=== PATIENT | male | born 1960 | race Caucasian/White ===

== ENCOUNTER → 2022-03-13 | Outpatient (CLI) | payer OTHER ==
[2022-03-13 11:16] LABS: ALT 69 U/L (10-49); AST 50 U/L (14-35); African American GFR (CKD) 112.5 (60.0-200.0); Albumin 4.5 g/dL (3.8-4.9); Alkaline Phosphatase 78 U/L (41-126); BUN/Creat Ratio 17.38 Ratio (12.00-20.00); Blood Urea Nitrogen 13.9 mg/dL (9.0-27.0); Carbon Dioxide 24.1 mmol/L (20.0-27.5); Chloride 107 mmol/L (96-109); Globulin 2.5 g/dL (1.6-3.3); Glucose 98 mg/dL (70-110); Magnesium 2.3 mg/dL (1.5-2.4); Non-African American GFR(CKD) 97.1 (60.0-200.0); Potassium 4.7 mmol/L (3.5-5.5); Sodium 140 mmol/L (135-145)
[2022-03-13 12:36] LABS: Basophils # (A) 0.07 X 10*3/uL (0.00-0.10); Basophils % (A) 1.3 %; Eosinophils # (A) 0.08 X 10*3/uL (0.04-0.35); Eosinophils % (A) 1.4 %; HCT 43.9 % (39.6-50.0); HGB 15.5 g/dL (13.0-17.0); Immature Grans, Automated 0.7 %; Lymphocytes # (A) 1.79 X 10*3/uL (0.90-5.00); Lymphocytes % (A) 32.3 %; MCH 31.7 pg (27.0-32.0); MCHC 35.3 g/dL (32.0-37.0); MCV 89.8 fL (80.0-97.0); Mean Platelet Volume 11.3 fL (9.5-12.2); Monocytes # (A) 0.56 X 10*3/uL (0.20-1.00); Monocytes % (A) 10.1 %; NRBC Per 100 WBC 0 /100 WBCS (0.0-0.0); Neutrophils # (A) 3.01 X 10*3/uL (1.80-7.70); Neutrophils % (A) 54.2 %; Platelet Count 130 X 10*3/uL (140-440); RBC 4.89 X 10*6/uL (4.40-5.60); RDW 13.5 % (11.5-14.5); WBC 5.55 X 10*3/uL (4.50-10.00)
== END | disposition home or self-care (01) ==
LOC: LABWHC1 07:34
PROVIDERS: ATTEND Physician Assistant
DX: E55.9 Vitamin D deficiency, unspecified (principal); R60.9 Edema, unspecified; G62.9 Polyneuropathy, unspecified
CPT/HCPCS: 36415; 80053; 82306; 83735; 84443; 85025

== ENCOUNTER → 2022-06-15 | Outpatient (CLI) | payer OTHER ==
--- NOTE | 2022-06-15 11:10 | XR ---
EXAMINATION TYPE: XR chest 2V DATE OF EXAM: 06/15/2022 COMPARISON: NONE TECHNIQUE: PA and lateral views submitted. HISTORY: SOB since covid FINDINGS: The lungs are clear and there is no pneumothorax, pleural effusion, or focal pneumonia. Heart size normal and no overt failure. Osseous structures demonstrate hypertrophic and degenerative changes of the spine. IMPRESSION: 1. No acute process.
[2022-06-15 18:01] LABS: Basophils # (A) 0.09 X 10*3/uL (0.00-0.10); Basophils % (A) 1.4 %; Eosinophils # (A) 0.09 X 10*3/uL (0.04-0.35); Eosinophils % (A) 1.4 %; HCT 47.1 % (39.6-50.0); HGB 15.7 g/dL (13.0-17.0); Immature Grans, Automated 0.5 %; Lymphocytes # (A) 2.56 X 10*3/uL (0.90-5.00); Lymphocytes % (A) 39.4 %; MCH 30.7 pg (27.0-32.0); MCHC 33.3 g/dL (32.0-37.0); MCV 92.2 fL (80.0-97.0); Mean Platelet Volume 11.6 fL (9.5-12.2); Monocytes # (A) 0.61 X 10*3/uL (0.20-1.00); Monocytes % (A) 9.4 %; NRBC Per 100 WBC 0 /100 WBCS (0.0-0.0); Neutrophils # (A) 3.12 X 10*3/uL (1.80-7.70); Neutrophils % (A) 47.9 %; Platelet Count 156 X 10*3/uL (140-440); RBC 5.11 X 10*6/uL (4.40-5.60); RDW 13.3 % (11.5-14.5)
[2022-06-15 19:28] LABS: ALT 88 U/L (10-49); AST 60 U/L (14-35); African American GFR (CKD) 107.2 (60.0-200.0); Albumin 4.8 g/dL (3.8-4.9); Albumin/Globulin Ratio 1.92 (1.60-3.17); Alkaline Phosphatase 78 U/L (41-126); BUN/Creat Ratio 20.56 Ratio (12.00-20.00); Blood Urea Nitrogen 18.5 mg/dL (9.0-27.0); Calcium 9.3 mg/dL (8.7-10.3); Carbon Dioxide 18.6 mmol/L (20.0-27.5); Chloride 104 mmol/L (96-109); Globulin 2.5 g/dL (1.6-3.3); Glucose 92 mg/dL (70-110); Magnesium 2.2 mg/dL (1.5-2.4); Non-African American GFR(CKD) 92.5 (60.0-200.0); Potassium 4.6 mmol/L (3.5-5.5); Sodium 138 mmol/L (135-145); Total Protein 7.3 g/dL (6.2-8.2)
[2022-06-15 19:29] LABS: Chol/HDL Ratio 4.02 Ratio; LDL Cholesterol,Calculated 100.7 mg/dL (0.0-131.0); VLDL Calculation 16.48 mg/dL (5.00-40.00)
== END | disposition home or self-care (01) ==
LOC: LABWHC1 10:42
PROVIDERS: ATTEND Physician Assistant
DX: Z00.00 Encounter for general adult medical examination without abnormal findings (principal); Z13.220 Encounter for screening for lipoid disorders; Z12.5 Encounter for screening for malignant neoplasm of prostate; R06.02 Shortness of breath; R60.9 Edema, unspecified
CPT/HCPCS: 36415; 71046; 80053; 80061; 83735; 84153; 85025

== ENCOUNTER 2023-01-11 13:11 | Emergency (ER) | payer OTHER ==
--- NOTE | 2023-01-11 13:31 | ED ---
General Adult HPI - General Chief complaint: Extremity Injury, Lower Stated complaint: poss DVT rt leg Time Seen by Provider: 01/11/23 13:15 Source: patient, RN notes reviewed, old records reviewed Mode of arrival: ambulatory Limitations: no limitations - History of Present Illness Initial comments: This is a 62-year-old male presents emergency Department with a past medical history significant for DVTs. Patient also states she's had peripheral vascular disease. Patient states she continues to smoke. Patient states he has pain from the knee down on the right side. 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 Patient's denying any increased swelling or redness. Patient denies any injury to the leg or knee. Patient states he does have chronic back pain. Patient denies any problems breathing or chest pain. - Related Data Previous Rx's Medication Instructions Recorded Apixaban [Eliquis Starter Pack 5 - 10 mg PO DIRECTED 30 Days 01/11/23 (for VTE)] #1 each Allergies Allergy/AdvReac Type Severity Reaction Status Date / Time No Known Allergies Allergy Verified 01/11/23 13:16 Review of Systems ROS Statement: Those systems with pertinent positive or pertinent negative responses have been documented in the HPI. ROS Other: All systems not noted in ROS Statement are negative. Past Medical History Additional Past Medical History / Comment(s): neuropathy History of Any Multi-Drug Resistant Organisms: None Reported Past Surgical History: Unable to Obtain Past Psychological History: No Psychological Hx Reported Smoking Status: Current every day smoker Past Alcohol Use History: None Reported Past Drug Use History: None Reported General Exam - General Exam Comments Initial Comments: GENERAL: Patient is well-developed and well-nourished. Patient is nontoxic and well- hydrated and is in mild distress. ENT: Neck is soft and supple. No significant lymphadenopathy is noted. Oropharynx is clear. Moist mucous membranes. Neck has full range of motion without eliciting any pain. EYES: The sclera were anicteric and conjunctiva were pink and moist. Extraocular movements were intact and pupils were equal round and reactive to light. Eyelids were unremarkable. PULMONARY: Unlabored respirations. Good breath sounds bilaterally. No audible rales rhonchi or wheezing was noted. CARDIOVASCULAR: There is a regular rate and rhythm without any murmurs gallops or rubs. ABDOMEN: Soft and nontender with normal bowel sounds. SKIN: Skin is clear with no lesions or rashes and otherwise unremarkable. NEUROLOGIC: Patient is alert and oriented x3. Cranial nerves II through XII are grossly intact. Motor and sensory are also intact. Normal speech, volume and content. Symmetrical smile. MUSCULOSKELETAL: Normal extremities with adequate strength and full range of motion. No lower extremity swelling or edema. No calf tenderness. Patient has no tenderness to palpation and there were LYMPHATICS: No significant lymphadenopathy is noted PSYCHIATRIC: Normal psychiatric evaluation. Limitations: no limitations Course Vital Signs 01/11/23 01/11/23 13:11 15:03 Temperature 98.3 F 98.4 F Pulse Rate 66 56 L Respiratory 18 17 Rate Blood Pressure 131/86 135/89 O2 Sat by Pulse 99 98 Oximetry Medical Decision Making - Medical Decision Making Was pt. sent in by a medical professional or institution (, PA, [employer] SOLUTIONS ARCHITECT, urgent care, hospital, or care home...) When possible be specific @ -No Did you speak to anyone other than the patient for history (EMS, parent, family, police, friend...)? What history was obtained from this source @ -No Did you review nursing and triage notes (agree or disagree)? Why? @ -I reviewed and agree with nursing and triage notes Were old charts reviewed (outside hosp., previous admission, EMS record, old EKG, old radiological studies, urgent care reports/EKG's, care home records)? Report findings @ -No old charts were reviewed Differential Diagnosis (chest pain, altered mental status, abdominal pain women, abdominal pain men, vaginal bleeding, weakness, fever, dyspnea, syncope, headache, dizziness, GI bleed, back pain, seizure, CVA, palpatations, mental health, musculoskeletal)? @ -DVT, sciatica, edema, knee injury EKG interpreted by me (3pts min.). @ -As above X-rays interpreted by me (1pt min.). @ -None done CT interpreted by me (1pt min.). @ -None done U/S interpreted by me (1pt. min.). @ -Ultrasound showed DVT in the right femoral vein What testing was considered but not performed or refused? (CT, X-rays, U/S, labs)? Why? @ -None What meds were considered but not given or refused? Why? @ -None Did you discuss the management of the patient with other professionals (professionals i.e. , PA, [employer] ARCHITECT, lab, RT, psych nurse, certified social workers in health care, artificial breeding technician, teacher, risk control officer, returned case inspector)? Give summary @ -No Was smoking cessation discussed for >3mins.? @ -No Was critical care preformed (if so, how long)? @ -No Were there social determinants of health that impacted care today? How? (Homelessness, low income, unemployed, alcoholism, drug addiction, transportation, low edu. Level, literacy, decrease access to med. care, halfway, rehab)? @ -No Was there de-escalation of care discussed even if they declined (Discuss DNR or withdrawal of care, Hospice)? DNR status @ -No What co-morbidities impacted this encounter? (DM, HTN, Smoking, COPD, CAD, Cancer, CVA, ARF, Chemo, Hep., AIDS, mental health diagnosis, sleep apnea, morbid obesity)? @ -None Was patient admitted / discharged? Hospital course, mention meds given and route, prescriptions, significant lab abnormalities, going to OR and other pertinent info. @ -Received eliquis in the emergency department and will be sent home on eliquis Undiagnosed new problem with uncertain prognosis? @ -No Drug Therapy requiring intensive monitoring for toxicity (Heparin, Nitro, Insulin, Cardizem)? @ -No Were any procedures done? @ -No Diagnosis/symptom? @ -DVT Acute, or Chronic, or Acute on Chronic? @ -Acute Uncomplicated (without systemic symptoms) or Complicated (systemic symptoms)? @ -Complicated Side effects of treatment? @ -No Exacerbation, Progression, or Severe Exacerbation? @ -No Poses a threat to life or bodily function? How? (Chest pain, [place], [place], pneumonia, PE, COPD, DKA, ARF, appy, cholecystitis, CVA, Diverticulitis, Homicidal, Suicidal, threat to staff... and all critical care pts) @ -Yes this could lead to a pulmonary embolism and cause Disposition Clinical Impression: Deep venous thrombosis Disposition: HOME SELF-CARE Condition: Good Instructions (If sedation given, give patient instructions): Deep Vein Thrombosis (ED) Prescriptions: Apixaban [Eliquis Starter Pack (for VTE)] 5 - 10 mg PO DIRECTED 30 Days #1 each Is patient prescribed a controlled substance at d/c from ED?: No Referrals: Reji Moore MD [Primary Care Provider] - 1-2 days Time of Disposition: 15:40
[2023-01-11 15:03] VITALS: BP 135/89; PULSE 56; RESP 17; TEMP 98.4
--- NOTE | 2023-01-11 15:18 | US ---
EXAMINATION TYPE: US venous doppler duplex LE RT DATE OF EXAM: 01/11/2023 2:59 PM COMPARISON: NONE CLINICAL INDICATION: Male, 62 years old with history of Leg pain history of DVT; Right leg pain, hist ory of DVT SIDE PERFORMED: Right TECHNIQUE: The lower extremity deep venous system is examined utilizing real time linear array sonog santi with graded compression, doppler sonography and color-flow sonography. VESSELS IMAGED: Common Femoral Vein Deep Femoral Vein Greater Saphenous Vein * Femoral Vein Popliteal Vein Small Saphenous Vein * Proximal Calf Veins (* superficial vessels) Right Leg: Positive for DVT - CFV - partial compression and flow seen at this level IMPRESSION: 1. Findings are positive for acute DVT right common femoral vein
[2023-01-11] MEDS ORDERED: APIXABAN 5 MG TAB PO STA (15:37)
[2023-01-11] MEDS ORDERED: Apixaban Initiation Dose--VTE 5 MG TAB PO SCH (21:00)
[2023-01-11] MEDS ORDERED: APIXABAN 5 MG TAB PO SCH (21:00)
== END 2023-01-11 15:45 | disposition home or self-care (01) ==
LOC: EC 13:11
DX: I82.411 Acute embolism and thrombosis of right femoral vein (principal); F17.200 Nicotine dependence, unspecified, uncomplicated
CPT/HCPCS: 99283

== ENCOUNTER → 2023-01-27 | Outpatient (CLI) | payer OTHER ==
--- NOTE | 2023-01-27 09:02 | XR ---
EXAMINATION TYPE: XR knee 4V RT DATE OF EXAM: 01/27/2023 COMPARISON: NONE HISTORY: Pain TECHNIQUE: Three views are submitted. FINDINGS: There is narrowing of the medial compartment joint space with marginal spurring. Mild patellofemoral joint narrowing with marginal spurring. There is a small amount of fluid in the suprapatellar bursa. Mild sedation.. Osseous structures are intact. No acute fracture seen. IMPRESSION: 1. Mild osteoarthritis. There is a small amount of fluid in the supra patellar bursa. This can be ass ociated with internal derangement of the knee.
== END | disposition home or self-care (01) ==
LOC: RADXRMAIN 08:29
PROVIDERS: ATTEND Pediatrics
DX: M17.11 Unilateral primary osteoarthritis, right knee (principal)

== ENCOUNTER → 2023-01-27 | Outpatient (CLI) | payer OTHER ==
[2023-01-27 18:02] LABS: Amylase 45 U/L (23-121); Lipase 19 U/L (14-60)
[2023-01-27 21:09] LABS: Gliadin AB IgA, Deaminated Negative (Negative); Gliadin AB IgA, Unit <0.5 U/mL; Gliadin AB IgG, Deaminated Negative (Negative); Gliadin AB IgG, Unit <0.4 U/mL
[2023-01-27 22:25] LABS: Hepatitis C IgG Antibody Reactive (Non-Reactive)
[2023-01-27 22:26] LABS: Hepatitis A Antibody IgM Nonreactive; Hepatitis B Core IgM Nonreactive; Hepatitis B Surface Antigen Nonreactive
== END | disposition home or self-care (01) ==
LOC: LABWHC1 09:07
PROVIDERS: ATTEND Pediatrics
DX: R74.8 Abnormal levels of other serum enzymes (principal)
CPT/HCPCS: 36415; 80074; 82150; 83516; 83690

== ENCOUNTER → 2023-01-29 | Outpatient (CLI) | payer OTHER ==
--- NOTE | 2023-01-29 08:36 | US ---
EXAMINATION TYPE: US abdomen limited DATE OF EXAM: 01/29/2023 COMPARISON: NONE CLINICAL INDICATION: Male, 62 years old with history of R74.8 elevated liver enzymes; Recent bloodwor k showed elevated LFT's TECHNIQUE: Multiple sonographic images of the right upper quadrant are obtained. FINDINGS: EXAM MEASUREMENTS: Liver Length: 18.9 cm Gallbladder Wall: 0.25 cm CBD: 0.26 cm Right Kidney: 12.3x5.4x5.5 cm HEALTH POLICY ANALYST NOTES: Pancreas: wnl Liver: echogenic and enlarged Gallbladder: wnl Evidence for sonographic Tejeda's sign: No CBD: wnl Right Kidney: wnl exam slightly limited by bowel and body habitus Pancreas is within normal limits. Liver is enlarged with diffusely increased echotexture. This limits evaluation for detection of intrahepatic masses. No gross evidence of focal lesion. Gallbladder is u nremarkable without evidence of wall thickening, pericholecystic fluid, or cholelithiasis. Per sonogr apher, negative sonographic Tejeda sign. Common bile duct is within normal limits. Right kidney is un remarkable without evidence of hydronephrosis, nephrolithiasis, or solid mass. IMPRESSION: Hepatomegaly with fatty infiltration.
== END | disposition home or self-care (01) ==
LOC: RADUSWWP 06:45
PROVIDERS: ATTEND Pediatrics
DX: K76.0 Fatty (change of) liver, not elsewhere classified (principal); R74.8 Abnormal levels of other serum enzymes
CPT/HCPCS: 76705

== ENCOUNTER 2023-02-11 10:23 | Emergency (ER) | payer OTHER ==
--- NOTE | 2023-02-11 10:42 | ED ---
General Adult HPI - General Source: patient, RN notes reviewed Mode of arrival: ambulatory Limitations: no limitations <Clyde Pope - Last Filed: 02/11/23 10:39> <Michaela Meadows - Last Filed: 02/11/23 18:14> - General Stated complaint: Abd pain Time Seen by Provider: 02/11/23 10:39 - History of Present Illness Initial comments: 62-year-old male presents emergency Department with chief complaint of abdominal pain. Patient states his started on Eliquis 2 weeks ago for a blood clot. Patient states he has epigastric pain, states is very severe doubled him over yesterday. No chest pain or shortness of breath. (Clyde Pope) Patient is a 62-year-old gentleman who has a history of DVTs that he started Eliquis on for 2 weeks ago, who presents to the emergency room with complaints of epigastric pain and right upper quadrant pain that started yesterday morning while driving. The patient states that the pain has been constant over the last 2 days. It has not fluctuated in intensity and it is not worse with eating or drinking certain foods, positional changes or breathing. Denies any cough, shortness breath, chest pain or hemoptysis. The patient denies any fevers. He denies any dark or tarry stool but admits that he has not had a bowel movement over the last several days. The patient has had a decreased appetite because of the pain. He denies any alcohol or drug use. Denies the history of pancreatitis. The patient denies any history of gallstones or gallbladder issues. (Michaela Meadows) - Related Data Previous Rx's Medication Instructions Recorded Apixaban [Eliquis Starter Pack 5 - 10 mg PO DIRECTED 30 Days 01/11/23 (for VTE)] #1 each Omeprazole [PriLOSEC] 40 mg PO DAILY #30 cap 02/11/23 Sucralfate [Carafate] 1 gm PO BID #24 tab 02/11/23 Allergies Allergy/AdvReac Type Severity Reaction Status Date / Time No Known Allergies Allergy Verified 02/11/23 10:44 Review of Systems ROS Other: All systems not noted in ROS Statement are negative. <Clyde Pope - Last Filed: 02/11/23 10:39> ROS Other: All systems not noted in ROS Statement are negative. <Michaela Meadows - Last Filed: 02/11/23 18:14> ROS Statement: Those systems with pertinent positive or pertinent negative responses have been documented in the HPI. Past Medical History Additional Past Medical History / Comment(s): neuropathy History of Any Multi-Drug Resistant Organisms: None Reported Past Surgical History: Unable to Obtain Past Psychological History: No Psychological Hx Reported Smoking Status: Current every day smoker Past Alcohol Use History: None Reported Past Drug Use History: None Reported <Clyde Pope - Last Filed: 02/11/23 10:39> General Exam <Clyde Pope - Last Filed: 02/11/23 10:39> Limitations: no limitations General appearance: alert, in no apparent distress Head exam: Present: atraumatic Neck exam: Present: normal inspection Respiratory exam: Present: normal lung sounds bilaterally Cardiovascular Exam: Present: regular rate, normal rhythm GI/Abdominal exam: Present: soft, other (Epigastric pain and right upper quadrant pain on palpation. Positive Tejeda's sign. No peritoneal signs or rebound tenderness. No abdominal distention.) Extremities exam: Present: full ROM Back exam: Present: full ROM Neurological exam: Present: alert, oriented X3 Psychiatric exam: Present: normal affect, normal mood Skin exam: Present: warm <VeeMichaela blank - Last Filed: 02/11/23 18:14> - General Exam Comments Initial Comments: Visual Physical Exam Vital signs reviewed General: Well-appearing, nontoxic, no acute distress. Head: Normocephalic, atraumatic Eyes: PERRLA, EOMI ENT: Airway patent Chest: Nonlabored breathing Skin: No visual rash, normal skin tone Neuro: Alert and oriented 3 Musculoskeletal: No gross abnormalities (Clyde Pope) Course <Michaela Meadows - Last Filed: 02/11/23 18:14> Vital Signs 02/11/23 02/11/23 02/11/23 10:44 16:42 17:52 Temperature 98.1 F 98 F Pulse Rate 74 68 74 Respiratory 16 18 16 Rate Blood Pressure 146/92 147/89 139/81 O2 Sat by Pulse 100 100 100 Oximetry - Reevaluation(s) Reevaluation #1: 02/11/23 3552 Patient had no significant improvement with GI cocktail. Was given Carafate. On reevaluation patient is eager to leave the emergency room. Discussed labs, EKG results and imaging results with patient. Patient has bilateral liver which I discussed with him. He has a slightly elevated liver enzymes. Per discussion with attending physician Dr. Weems, a hepatitis panel was added and will be followed as an outpatient. I discussed going up a GI specialist for possible outpatient upper endoscopy and HIDA scan. Discussed management of the epigastric pain possible gallbladder problems with the patient. Patient will be given Carafate as being for pain as well as omeprazole. Discussed diet with the patient. I incised return to the emergency room. He understands and agrees to treatment and discharge plan. (Michaela Meadows) EKG Findings - EKG Comments: EKG Findings:: EKG shows sinus rhythm at a rate of 75 bpm with an incomplete right bundle-branch block, nonspecific anteriorly changes, no acute ST segment elevation <Michaela Meadows - Last Filed: 02/11/23 18:14> Medical Decision Making <Clyde Pope - Last Filed: 02/11/23 10:39> - Lab Data Result diagrams: 02/11/23 11:50 02/11/23 11:50 - EKG Data -: EKG Interpreted by Me - Radiology Data Radiology results: report reviewed, image reviewed <Michaela Meadows - Last Filed: 02/11/23 18:14> - Medical Decision Making I performed a quick note portion of this chart signed Clyde Pope PA-C (Clyde Pope) Was pt. sent in by a medical professional or institution (, BRIAN, TRAFFIC SIGNAL REPAIRER, urgent care, hospital, or halfway...) When possible be specific @ -[No] Did you speak to anyone other than the patient for history (EMS, parent, family, police, friend...)? What history was obtained from this source @ -[No] Did you review nursing and triage notes (agree or disagree)? Why? @ -[I reviewed and agree with nursing and triage notes] Were old charts reviewed (outside hosp., previous admission, EMS record, old EKG, old radiological studies, urgent care reports/EKG's, halfway records)? Report findings @ -[No old charts were reviewed] Differential Diagnosis (chest pain, altered mental status, abdominal pain women, abdominal pain men, vaginal bleeding, weakness, fever, dyspnea, syncope, headache, dizziness, GI bleed, back pain, seizure, CVA, palpatations, mental health, musculoskeletal)? @ -Gallstones, cholecystitis, GERD, duodenal or gastric ulcer, pancreatitis, angina, [place] EKG interpreted by me (3pts min.). @ -EKG shows sinus rhythm at a rate of 75 beats per minute with incomplete right bundle-branch block, nonspecific anteriorly changes, no acute ST segment elevation X-rays interpreted by me (1pt min.). @ -[None done] CT interpreted by me (1pt min.). @ -[None done] U/S interpreted by me (1pt. min.). @ -The ultrasound is negative for any obvious mass or extraction. Possible viral liver noted, radiology report pending for confirmation of acute changes. What testing was considered but not performed or refused? (CT, X-rays, U/S, labs)? Why? @ -[None] What meds were considered but not given or refused? Why? @ -[None] Did you discuss the management of the patient with other professionals (professionals i.e. , PA, TRAFFIC SIGNAL REPAIRER, lab, RT, psych nurse, social media marketing analyst, atomic spectroscopist, teacher, information assurance officer, lead case manager)? Give summary @ -I discussed patient's symptoms are And management with attending ED physician Dr. Weems today. Was smoking cessation discussed for >3mins.? @ -[No] Was critical care preformed (if so, how long)? @ -[No] Were there social determinants of health that impacted care today? How? (Homelessness, low income, unemployed, alcoholism, drug addiction, transportation, low edu. Level, literacy, decrease access to med. care, care home, rehab)? @ -[No] Was there de-escalation of care discussed even if they declined (Discuss DNR or withdrawal of care, Hospice)? DNR status @ -[No] What co-morbidities impacted this encounter? (DM, HTN, Smoking, COPD, CAD, Cancer, CVA, ARF, Chemo, Hep., AIDS, mental health diagnosis, sleep apnea, morbid obesity)? @ -[None] Was patient admitted / discharged? Hospital course, mention meds given and route, prescriptions, significant lab abnormalities, going to OR and other pertinent info. @ -The patient is well-appearing emergency room. Vital signs are stable. Patient's troponin and EKG are within normal limits. He was feeling better after the Carafate and is eager to leave. His labs with the exception of mild elevated LFTs were within normal limits. Patient has no obvious cholecystitis or other surgical complication seen on the ultrasound of the gallbladder. I discussed following up as an outpatient with GI specialist for further evaluation and management of the epigastric pain. Discussed signs return to the emergency room which the patient understands and agrees upon. He is stable to be discharged at this time. There is no indication that hospitalization is required. Undiagnosed new problem with uncertain prognosis? @ -No Drug Therapy requiring intensive monitoring for toxicity (Heparin, Nitro, Insulin, Cardizem)? @ -[No] Were any procedures done? @ -[No] Diagnosis/symptom? @ -Epigastric pain, mild elevated liver enzymes, hepatic Steatosis Acute, or Chronic, or Acute on Chronic? @ -Acute Uncomplicated (without systemic symptoms) or Complicated (systemic symptoms)? @ -[default] Side effects of treatment? @ -[No] Exacerbation, Progression, or Severe Exacerbation? @ -[No] Poses a threat to life or bodily function? How? (Chest pain, [place], [place], pneumonia, PE, COPD, DKA, ARF, appy, cholecystitis, CVA, Diverticulitis, Homicidal, Suicidal, threat to staff... and all critical care pts) @ -[No] (Michaela Meadows) - Lab Data Lab Results 02/11/23 02/11/23 02/11/23 Range/Units 11:50 11:50 11:50 WBC 11.8 H (3.8-10.6) k/uL RBC 5.66 (4.30-5.90) m/uL Hgb 18.3 H (13.0-17.5) gm/dL Hct 52.7 (39.0-53.0) % MCV 93.0 (80.0-100.0) fL MCH 32.4 (25.0-35.0) pg MCHC 34.8 (31.0-37.0) g/dL RDW 13.1 (11.5-15.5) % Plt Count 153 (150-450) k/uL MPV 8.4 Neutrophils % 71 % Lymphocytes % 19 % Monocytes % 7 % Eosinophils % 1 % Basophils % 0 % Neutrophils # 8.3 H (1.3-7.7) k/uL Lymphocytes # 2.2 (1.0-4.8) k/uL Monocytes # 0.9 (0-1.0) k/uL Eosinophils # 0.2 (0-0.7) k/uL Basophils # 0.1 (0-0.2) k/uL Sodium 136 L (137-145) mmol/L Potassium 4.8 (3.5-5.1) mmol/L Chloride 102 (98-107) mmol/L Carbon Dioxide 24 (22-30) mmol/L Anion Gap 10 mmol/L BUN 19 (9-20) mg/dL Creatinine 0.81 (0.66-1.25) mg/dL Est GFR (CKD-EPI)AfAm >90 (>60 ml/min/1.73 sqM) Est GFR (CKD-EPI)NonAf >90 (>60 ml/min/1.73 sqM) Glucose 94 (74-99) mg/dL Plasma Lactic Acid Lenin 1.0 (0.7-2.0) mmol/L Calcium 9.7 (8.4-10.2) mg/dL Total Bilirubin 3.9 H (0.2-1.3) mg/dL AST 86 H (17-59) U/L ALT 139 H (4-49) U/L Alkaline Phosphatase 73 (38-126) U/L Troponin I (0.000-0.034) ng/mL Total Protein 8.5 H (6.3-8.2) g/dL Albumin 4.9 (3.5-5.0) g/dL Lipase 77 (23-300) U/L 02/11/23 Range/Units 15:53 WBC (3.8-10.6) k/uL RBC (4.30-5.90) m/uL Hgb (13.0-17.5) gm/dL Hct (39.0-53.0) % MCV (80.0-100.0) fL MCH (25.0-35.0) pg MCHC (31.0-37.0) g/dL RDW (11.5-15.5) % Plt Count (150-450) k/uL MPV Neutrophils % % Lymphocytes % % Monocytes % % Eosinophils % % Basophils % % Neutrophils # (1.3-7.7) k/uL Lymphocytes # (1.0-4.8) k/uL Monocytes # (0-1.0) k/uL Eosinophils # (0-0.7) k/uL Basophils # (0-0.2) k/uL Sodium (137-145) mmol/L Potassium (3.5-5.1) mmol/L Chloride (98-107) mmol/L Carbon Dioxide (22-30) mmol/L Anion Gap mmol/L BUN (9-20) mg/dL Creatinine (0.66-1.25) mg/dL Est GFR (CKD-EPI)AfAm (>60 ml/min/1.73 sqM) Est GFR (CKD-EPI)NonAf (>60 ml/min/1.73 sqM) Glucose (74-99) mg/dL Plasma Lactic Acid Lenin (0.7-2.0) mmol/L Calcium (8.4-10.2) mg/dL Total Bilirubin (0.2-1.3) mg/dL AST (17-59) U/L ALT (4-49) U/L Alkaline Phosphatase (38-126) U/L Troponin I <0.012 (0.000-0.034) ng/mL Total Protein (6.3-8.2) g/dL Albumin (3.5-5.0) g/dL Lipase (23-300) U/L Disposition <Clyde Pope - Last Filed: 02/11/23 10:39> Is patient prescribed a controlled substance at d/c from ED?: No Time of Disposition: 17:47 <Michaela Meadows - Last Filed: 02/11/23 18:14> Clinical Impression: Acute abdomen, Epigastric pain, Hepatic steatosis, Elevated liver enzymes Disposition: HOME SELF-CARE Condition: Good Instructions (If sedation given, give patient instructions): Sucralfate (By mouth), Low Fat Diet (ED), Non-Alcoholic Fatty Liver Disease (ED), Abdominal Pain (ED), Epigastric Pain (ED) Additional Instructions: follow up with GI specialist for outpatient endoscopy and possible HIDA scan. Prescriptions: Sucralfate [Carafate] 1 gm PO BID #24 tab Omeprazole [PriLOSEC] 40 mg PO DAILY #30 cap Referrals: Reji Moore MD [Primary Care Provider] - 1-2 days Ivania Alfaro MD [STAFF PHYSICIAN] - 1-2 days
[2023-02-11 11:56] LABS: Basophils # (A) 0.1 k/uL (0-0.2); Basophils % (A) 0 %; Eosinophils # (A) 0.2 k/uL (0-0.7); Eosinophils % (A) 1 %; HCT 52.7 % (39.0-53.0); HGB 18.3 gm/dL (13.0-17.5); Lymphocytes # (A) 2.2 k/uL (1.0-4.8); Lymphocytes % (A) 19 %; MCH 32.4 pg (25.0-35.0); MCHC 34.8 g/dL (31.0-37.0); Mean Platelet Volume 8.4; Monocytes # (A) 0.9 k/uL (0-1.0); Monocytes % (A) 7 %; Neutrophils # (A) 8.3 k/uL (1.3-7.7); Neutrophils % (A) 71 %; Platelet Count 153 k/uL (150-450); RBC 5.66 m/uL (4.30-5.90); RDW 13.1 % (11.5-15.5); WBC 11.8 k/uL (3.8-10.6)
[2023-02-11 12:08] LABS: ALT 139 U/L (4-49); African American GFR (CKD) >90 (>60 ml/min/1.73 sqM); Albumin 4.9 g/dL (3.5-5.0); Anion Gap 10 mmol/L; Blood Urea Nitrogen 19 mg/dL (9-20); Calcium 9.7 mg/dL (8.4-10.2); Carbon Dioxide 24 mmol/L (22-30); Chloride 102 mmol/L (98-107); Glucose 94 mg/dL (74-99); Lipase 77 U/L (23-300); Non-African American GFR(CKD) >90 (>60 ml/min/1.73 sqM); Sodium 136 mmol/L (137-145); Total Bilirubin 3.9 mg/dL (0.2-1.3); Total Protein 8.5 g/dL (6.3-8.2)
[2023-02-11 12:14] LABS: AST 86 U/L (17-59); Potassium 4.8 mmol/L (3.5-5.1)
[2023-02-11 12:15] LABS: Alkaline Phosphatase 73 U/L (38-126)
[2023-02-11] MEDS ORDERED: MAG HYDROX/AL HYDROX/SIMETH 30 ML, HYOSCYAMINE ELIXIR 10 ML, LIDOCAINE 2% GLYDO JELLY 1... PO STA ×3 (14:29)
--- NOTE | 2023-02-11 16:43 | US ---
EXAMINATION TYPE: US gallbladder DATE OF EXAM: 02/11/2023 COMPARISON: EXAMINATION TYPE: US gallbladder DATE OF EXAM: 02/11/2023 COMPARISON: 01/29/23 CLINICAL INDICATION: Male, 62 years old with history of RUQ abdominal pain; RUQ pain x 1 day TECHNIQUE: Multiple sonographic images of the right upper quadrant are obtained. FINDINGS: EXAM MEASUREMENTS: Liver Length: 17.8 cm Gallbladder Wall: 0.28 cm CBD: 0.6 cm Right Kidney: 12.2 x 6.7 x 6.6 cm AMF MECHANIC NOTES: Pancreas: Tail is slightly limited due to bowel gas. Parts visualized appear wnl Liver: Slightly increased echotexture. Gallbladder: wnl Evidence for sonographic Tejeda's sign: No CBD: wnl Right Kidney: wnl IMPRESSION: 1. No evidence for acute abdominal process. 2. Hepatic steatosis suggested.
[2023-02-11] MEDS ORDERED: SUCRALFATE 1 GM TAB PO STA (16:55)
[2023-02-11 17:54] VITALS: BP 139/81; PULSE 74; RESP 16; TEMP 98
== END 2023-02-11 17:53 | disposition home or self-care (01) ==
LOC: EC 10:23
DX: K76.0 Fatty (change of) liver, not elsewhere classified (principal); R74.8 Abnormal levels of other serum enzymes; F17.200 Nicotine dependence, unspecified, uncomplicated
CPT/HCPCS: 36415; 76705; 80053; 83605; 83690; 84484; 85025; 93005; 99284

== ENCOUNTER → 2023-03-11 | Outpatient (CLI) | payer OTHER ==
[2023-03-11 17:03] LABS: Hepatitis C IgG Antibody Reactive (Non-Reactive)
[2023-03-11 17:04] LABS: Hepatitis B Surface Antigen Nonreactive
[2023-03-11 17:54] LABS: ALT 161 U/L (10-49); AST 105 U/L (14-35); Albumin 4.6 d/dL (3.8-4.9); Alkaline Phosphatase 89 U/L (41-126); Blood Urea Nitrogen 12.8 mg/dL (9.0-27.0); Calcium 9.6 mg/dL (8.7-10.3); Carbon Dioxide 21.3 mmol/L (21.6-31.8); Chloride 104 mmol/L (96-109); Globulin 2.7 d/dL (1.6-3.3); Glucose 99 mg/dL (70-110); Potassium 4.8 mmol/L (3.5-5.5); Sodium 138 mmol/L (135-145); Total Bilirubin 1.4 mg/dL (0.3-1.2); Total Protein 7.3 d/dL (6.2-8.2)
== END | disposition home or self-care (01) ==
LOC: LABWHC1 08:10
PROVIDERS: ATTEND Internal Medicine Gastroenterology
DX: B18.2 Chronic viral hepatitis C (principal); R74.8 Abnormal levels of other serum enzymes
CPT/HCPCS: 36415; 80053; 85025; 86803; 87340; 87522

== ENCOUNTER → 2023-05-10 | Outpatient (CLI) | payer OTHER ==
[2023-05-10 16:01] LABS: Basophils # (A) 0.06 X 10*3/uL (0.00-0.10); Basophils % (A) 0.9 %; Eosinophils % (A) 1.5 %; HCT 49.3 % (39.6-50.0); HGB 16.9 g/dL (13.0-17.0); Lymphocytes % (A) 32.1 %; MCH 31.8 pg (27.0-32.0); MCHC 34.3 g/dL (32.0-37.0); MCV 92.7 FL (80.0-97.0); Monocytes # (A) 0.55 X 10*3/uL (0.20-1.00); Monocytes % (A) 8.4 %; NRBC Per 100 WBC 0 X 10*3/uL (0.00-0.01); Neutrophils % (A) 56.5 %; Platelet Count 136 X 10*3/uL (140-440); RBC 5.32 X 10*6/uL (4.40-5.60); RDW 13.2 % (11.5-14.5); WBC 6.55 X 10*3/uL (4.50-10.00)
[2023-05-10 16:23] LABS: Chol/HDL Ratio 3.96 Ratio; LDL Cholesterol,Calculated 94.6 mg/dL (0.0-131.0)
[2023-05-10 16:38] LABS: ALT 229 U/L (10-49); AST 141 U/L (14-35); Albumin 4.6 g/dL (3.8-4.9); Albumin/Globulin Ratio 1.84 Ratio (1.60-3.17); Alkaline Phosphatase 88 U/L (41-126); BUN/Creat Ratio 15.62 Ratio (12.00-20.00); Blood Urea Nitrogen 12.5 mg/dL (9.0-27.0); Calcium 9.2 mg/dL (8.7-10.3); Carbon Dioxide 23.3 mmol/L (21.6-31.8); Chloride 102 mmol/L (96-109); Globulin 2.5 g/dL (1.6-3.3); Glucose 92 mg/dL (70-110); Potassium 4.6 mmol/L (3.5-5.5); Sodium 138 mmol/L (135-145); Total Bilirubin 1.1 mg/dL (0.3-1.2); Total Protein 7.1 g/dL (6.2-8.2)
[2023-05-11 13:44] LABS: Hepatitis C Virus RNA, Qual DETECTED (Not detected)
== END | disposition home or self-care (01) ==
LOC: LABWHC1 08:22
PROVIDERS: ATTEND Physician Assistant
DX: Z00.00 Encounter for general adult medical examination without abnormal findings (principal); Z13.220 Encounter for screening for lipoid disorders; Z12.5 Encounter for screening for malignant neoplasm of prostate; R60.9 Edema, unspecified; R74.8 Abnormal levels of other serum enzymes
CPT/HCPCS: 36415; 80053; 80061; 83735; 84153; 84443; 85025; 87521

== ENCOUNTER → 2023-05-25 | Outpatient (CLI) | payer OTHER ==
[2023-05-25 14:58] LABS: Basophils # (A) 0.07 X 10*3/uL (0.00-0.10); Basophils % (A) 1.1 %; Eosinophils # (A) 0.09 X 10*3/uL (0.04-0.35); Eosinophils % (A) 1.4 %; HGB 16.7 g/dL (13.0-17.0); Lymphocytes # (A) 2.02 X 10*3/uL (0.90-5.00); Lymphocytes % (A) 32.5 %; MCH 31.6 pg (27.0-32.0); MCHC 34.1 g/dL (32.0-37.0); MCV 92.8 FL (80.0-97.0); Mean Platelet Volume 11.7 FL (9.5-12.2); Monocytes # (A) 0.58 X 10*3/uL (0.20-1.00); Monocytes % (A) 9.3 %; NRBC Per 100 WBC 0 X 10*3/uL (0.00-0.01); Neutrophils # (A) 3.41 X 10*3/uL (1.80-7.70); Neutrophils % (A) 54.9 %; Platelet Count 129 X 10*3/uL (140-440); RBC 5.28 X 10*6/uL (4.40-5.60); RDW 13.1 % (11.5-14.5); WBC 6.22 X 10*3/uL (4.50-10.00)
[2023-05-25 15:40] LABS: ALT 236 U/L (10-49); AST 128 U/L (14-35); Albumin 4.6 g/dL (3.8-4.9); Alkaline Phosphatase 95 U/L (41-126); BUN/Creat Ratio 17.78 Ratio (12.00-20.00); Calcium 10.1 mg/dL (8.7-10.3); Carbon Dioxide 21.8 mmol/L (21.6-31.8); Chloride 105 mmol/L (96-109); Globulin 2.7 g/dL (1.6-3.3); Glucose 94 mg/dL (70-110); Potassium 4.6 mmol/L (3.5-5.5); Sodium 142 mmol/L (135-145); Total Bilirubin 0.9 mg/dL (0.3-1.2); Total Protein 7.3 g/dL (6.2-8.2)
[2023-05-25 15:49] LABS: Hepatitis B Surface Antigen Nonreactive
== END | disposition home or self-care (01) ==
LOC: LABWHC1 08:28
PROVIDERS: ATTEND Internal Medicine Gastroenterology
DX: B18.2 Chronic viral hepatitis C (principal)
CPT/HCPCS: 36415; 80053; 82105; 85025; 86704; 87340

== ENCOUNTER 2023-09-17 10:48 | Day surgery (SDC) | payer OTHER ==
[2023-09-14 13:12] VITALS: BMI 37.4
--- NOTE | 2023-09-16 08:47 | P.HPOR ---
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 He has anterior /medial pain along with swelling. He has intermittent catching and buckling. He tried medications in addition to previous injections only partial temporary relief. He notes daily pain that limits his normal function and activities. Review of Systems As per HPI Past Medical History Past Medical History: Deep Vein Thrombosis (DVT), Liver Disease Additional Past Medical History / Comment(s): Neuropathy. "Liver problems resolved". Hepatitis C, gnx-rnpgplx-yigsapolf diabetes, DVT, COPD. History of Any Multi-Drug Resistant Organisms: None Reported Past Surgical History: Unable to Obtain Additional Past Surgical History / Comment(s): COLONOSCOPY, TAMRA FILTER INSERTED RIGHT LEG. Past Anesthesia/Blood Transfusion Reactions: No Reported Reaction Smoking Status: Current every day smoker - Past Family History Brother(s) Family Medical History: Cancer Additional Family Medical History / Comment(s): BROTHER # 1 COLON. BROTHER # 2 LIVER Medications and Allergies Home Medications Medication Instructions Recorded Confirmed Type Gabapentin [Neurontin] 800 mg PO HS 07/22/23 09/14/23 History Allergies Allergy/AdvReac Type Severity Reaction Status Date / Time No Known Allergies Allergy Verified 09/14/23 12:45 Physical Examination - Knee right Appearance: effusion Effusion grade: grade 2 Varus alignment in stance: 5 degrees Tenderness with palpation: anterior, medial Pain: throughout ROM Gait: limping ROM: extension: -15 degrees ROM: flexion: 110 degrees Crepitus with motion: Yes Strength: extension: 5/5 Strength: flexion: 5/5 Meniscal tests: medial meniscal tests: positive, medial joint line pain: positive Results The patient is a well-developed well-nourished male proximal 6 foot 1, 270 pounds of endomorphic habitus. HEENT exam is nonfocal, neck is supple. He has painless passive motion of the right hip. Straight leg raise is negative. He is tender about the medial joint line of the right knee. Collaterals are stable, Ann was negative, Abilio's elicits medial pain. His distal neurovascular exam appears intact in the right lower extremity. - Diagnostic results Knee MRI: image reviewed (MRI of the right knee shows evidence of medial and lateral meniscal tears.) Assessment and Plan Assessment: Internal derangement right knee/symptomatic medial/lateral meniscal tears Right knee moderate medial compartment osteoarthrosis History of hepatitis C History of DVT Plan: I talked to the patient at length regarding his condition along with treatment options. At this point he is quite symptomatic having pain and mechanical symptoms despite conservative measures. After a thorough discussion he opts to proceed with surgery. We'll plan to proceed with right knee arthroscopy with possible partial medial and lateral meniscectomy. We will likely perform that as an outpatient procedure. Risks and benefits were discussed at length in layman's terms.
[2023-09-17] MEDS ORDERED: MIDAZOLAM 2 MG/2 ML VIAL IV PRN (12:26)
[2023-09-17] MEDS ORDERED: HYDROmorphone 0.5 MG/0.5 ML SYRINGE IVP PRN (12:26)
[2023-09-17] MEDS ORDERED: SCOPOLAMINE 1 MG/72 HR PATCH TRANSDERM ONE (12:26)
[2023-09-17] MEDS: LACTATED RINGERS 1,000 ML IV SCH (12:54)
[2023-09-17] MEDS: ONDANSETRON 4 MG/2 ML VIAL IVP ONE (12:55)
[2023-09-17] MEDS: DEXAMETHASONE SOD PHOSPHATE 4 MG/ML 1 ML VIAL IV ONE (12:55)
[2023-09-17] MEDS ORDERED: SUCCINYLCHOLINE CHLORIDE 200 MG/10 ML VIAL IV ONE (13:17)
[2023-09-17] MEDS ORDERED: MIDAZOLAM 2 MG/2 ML VIAL ONE (13:17)
[2023-09-17] MEDS ORDERED: fentaNYL (PF) 50 MCG/ML 2 ML AMP ONE (13:17)
[2023-09-17] MEDS ORDERED: PROPOFOL 10 MG/ML 20 ML VIAL IV ONE (13:17)
[2023-09-17] MEDS ORDERED: LIDOCAINE 1% INJ 10MG/ML (20 ML MDV) ONE (13:17)
[2023-09-17] MEDS: ceFAZolin 3 GM in SODIUM CHLORIDE 0.9% 100 ML IVPB PRN (13:22)
[2023-09-17] MEDS: EPINEPHrine (PF) 1 ML in SODIUM CHLORIDE 0.9% IRRIGATIO 3,000 ML IRRIGATION ONE (13:38)
--- NOTE | 2023-09-17 13:59 | P.OP ---
Date of Procedure: 09/17/23 Preoperative Diagnosis: Right knee internal derangement Postoperative Diagnosis: Right knee posterior medial meniscal tear/middle one third lateral meniscal tear Procedure(s) Performed: Right knee arthroscopic partial medial meniscectomy/partial lateral meniscectomy Anesthesia: LEONILA Surgeon: Jaiden Prakash Estimated Blood Loss (ml): 10 Pathology: none sent Condition: stable Disposition: PACU Indications for Procedure: The patient is a 62-year-old male who presents with persistent/progressive right knee pain and mechanical symptoms despite conservative measures. A discussion of the risks and benefits of operative intervention versus continued conservative measures was made with the patient. He opted to proceed with surgery. Operative risks include infection, neurovascular injury, development of blood clots, possible incomplete resolution of symptoms, possible worsening of symptoms and need for subsequent procedures was discussed. Informed consent was obtained. Operative Findings: As below Description of Procedure: The patient was brought to the operating room, and after induction of general anesthesia examined the right knee. Collaterals were stable, Ann was negative, and posterior drawer was negative. The right lower extremity was prepped and draped in a normal fashion. A superior lateral portal was made through a 3 mm skin incision superior and lateral to the patella. This was used for outflow. A lateral portal was made through a 5 mm vertical skin incision lateral to the patella tendon above the joint line. Diagnostic arthroscopy was performed. On inspection of the medial compartment, a complex tear involving the posterior horn of the medial meniscus in the white-red junction was noted. This was debrided back to stable base with straight baskets and a motorized shaver. The remaining medial meniscus was stable and intact. Grade 2-3 chondral changes are noted diffusely. There was a small 4 x 5 mm grade 4 chondral lesion on the medial tibial plateau. On inspection of the notch, the anterior cruciate ligament appeared to be intact. On inspection of the lateral compartment, a radial tear involve the middle one third of the lateral meniscus in the white-junction was noted. This was debrided back to stable base with a motorized shaver. The remaining lateral meniscus was stable and intact. Minimal cartilage loss was noted. On inspection of the patellofemoral articu lation, there is chondral fibrillation however no loose chondral fragments.. The gutters were clear of debris. The knee was then thoroughly irrigated. The portals were closed with Steri-Strips. A sterile dressing was applied in addition to a compression stocking. The patient was awoken from general anesthesia and transferred to recovery room in good condition. Blood loss was estimated at 10 mL. No complications were incurred.
[2023-09-17 14:21] VITALS: TEMP 97
[2023-09-17] MEDS ORDERED: HYDROcodone/APAP 7.5-325MG 1 EACH TAB ONE (15:11)
[2023-09-17] MEDS: HYDROcodone/APAP 7.5-325MG 1 EACH TAB PO ONE (15:13)
[2023-09-17 15:44] VITALS: BP 153/98; PULSE 56; RESP 15
== END 2023-09-17 15:50 | disposition home or self-care (01) ==
LOC: OR 10:48
PROVIDERS: ATTEND Orthopaedic Surgery
DX: S83.241A Other tear of medial meniscus, current injury, right knee, initial encounter (principal); S83.281A Other tear of lateral meniscus, current injury, right knee, initial encounter; J44.9 Chronic obstructive pulmonary disease, unspecified; M17.11 Unilateral primary osteoarthritis, right knee; E11.42 Type 2 diabetes mellitus with diabetic polyneuropathy; F17.210 Nicotine dependence, cigarettes, uncomplicated; Z86.718 Personal history of other venous thrombosis and embolism; Z79.899 Other long term (current) drug therapy; X58.XXXA Exposure to other specified factors, initial encounter
CPT/HCPCS: 29880; J2250; J0330; J1100; J0690; J2405; J0171; J2001; J3010; J2704

== ENCOUNTER → 2023-09-30 | Outpatient (CLI) | payer OTHER ==
[2023-09-30 14:58] LABS: Alpha Fetoprotein, Tumor Mkr <3.00 ng/mL (0.00-7.90)
== END | disposition home or self-care (01) ==
LOC: LABWHC1 09:24
PROVIDERS: ATTEND Internal Medicine Gastroenterology
DX: B18.2 Chronic viral hepatitis C (principal); K74.60 Unspecified cirrhosis of liver
CPT/HCPCS: 36415; 82105; 87522

== ENCOUNTER → 2023-10-29 | Outpatient (CLI) | payer OTHER ==
--- NOTE | 2023-10-31 17:34 | US ---
EXAMINATION TYPE: US liver DATE OF EXAM: 10/29/2023 COMPARISON: Gallbladder ultrasound 02/11/2023, abdominal ultrasound 01/29/2023 CLINICAL INDICATION: Male, 62 years old with history of K74.60 UNSPECIFIED CIRRHOSIS OF LIVER; Abnorm al labs. TECHNIQUE: Multiple sonographic images of the right upper quadrant are obtained. FINDINGS: EXAM MEASUREMENTS: Liver Length: 19.5 cm Gallbladder Wall: 0.2 cm CBD: 0.5 cm Right Kidney: 13.2 x 6.3 x 5.5 cm Pancreas: Echogenic in appearance. Tail limited due to bowel gas. Main pancreatic duct = 1.6 mm. Liver: Enlarged in size. Gallbladder: No stones or wall thickening Evidence for sonographic Tejeda's sign: neg CBD: wnl Right Kidney: No hydronephrosis or masses seen Main pancreatic duct is normal in size. Echogenic appearance of the pancreas with limited visualizati on of the tail due to overlying bowel gas. Liver is slightly heterogenous coarsened appearance and en larged. No focal lesion identified. No overt service nodularity. Gallbladder shows no wall thickening or stones. No surrounding fluid. Negative sonographic Tejeda's sign. Common bile duct within normal limits. Right kidney is unremarkable without evidence for hydronephrosis or solid masses. No stones. IMPRESSION: 1. No acute process 2. Hepatomegaly redemonstrated with coarsened heterogenous appearance of the liver consistent with he patocellular disease. No overt ultrasound appearance of cirrhosis at this time.
== END | disposition home or self-care (01) ==
LOC: RADUSWWP 06:46
PROVIDERS: ATTEND Internal Medicine Gastroenterology
DX: K74.60 Unspecified cirrhosis of liver (principal); R16.0 Hepatomegaly, not elsewhere classified; K76.9 Liver disease, unspecified
CPT/HCPCS: 76705

== ENCOUNTER → 2024-04-20 | Outpatient (CLI) | payer OTHER ==
--- NOTE | 2024-04-20 12:44 | US ---
EXAMINATION TYPE: US liver DATE OF EXAM: 04/20/2024 COMPARISON: Liver ultrasound 10/29/2023, gallbladder ultrasound 02/11/2023, abdominal ultrasound 01/30/20 CLINICAL INDICATION: Male, 63 years old with history of K74.60 CIRRHOSIS OF LIVER; routine 6 month US for cirrhosis, no symptoms or issues since we saw him last TECHNIQUE: Grayscale and color Doppler imaging of the right upper quadrant was performed. FINDINGS: EXAM MEASUREMENTS: Liver Length: 18.54 cm Gallbladder Wall: 0.2 cm CBD: 0.6 cm Right Kidney: 11.6 x 4.6 x 5.7 cm Pancreas: wnl Liver: wnl Gallbladder: wnl Evidence for sonographic Tejeda's sign: no CBD: wnl Right Kidney: wnl Borderline enlarged liver. No focal lesion. No overt cirrhotic appearance at this time. Pancreas is w ithin normal limits. Gallbladder is unremarkable without evidence of gallstones, wall thickening or s urrounding fluid. Negative sonographic Tejeda's sign. Common bile duct is within normal limits. Right kidney demonstrates no hydronephrosis, solid mass, or shadowing calculi. IMPRESSION: 1. No acute process. 2. Mild borderline hepatomegaly. No focal lesion identified. No overt cirrhosis at this time. [facility], , 04/20/2024 12:42 PM
[2024-04-20 16:04] LABS: ALT 28 U/L (10-49); AST 36 U/L (14-35); Albumin 4.5 g/dL (3.8-4.9); Albumin/Globulin Ratio 1.73 Ratio (1.60-3.17); Alkaline Phosphatase 79 U/L (41-126); BUN/Creat Ratio 20.38 Ratio (12.00-20.00); Blood Urea Nitrogen 16.3 mg/dL (9.0-27.0); Calcium 9.4 mg/dL (8.7-10.3); Carbon Dioxide 24.5 mmol/L (21.6-31.8); Chloride 106 mmol/L (96-109); Globulin 2.6 g/dL (1.6-3.3); Glucose 82 mg/dL (70-110); Potassium 4.8 mmol/L (3.5-5.5); Sodium 141 mmol/L (135-145); Total Bilirubin 1.3 mg/dL (0.3-1.2); Total Protein 7.1 g/dL (6.2-8.2)
[2024-04-20 17:31] LABS: Basophils # (A) 0.07 X 10*3/uL (0.00-0.10); Basophils % (A) 1.1 %; Eosinophils # (A) 0.08 X 10*3/uL (0.04-0.35); Eosinophils % (A) 1.3 %; HCT 48.5 % (39.6-50.0); HGB 16.7 g/dL (13.0-17.0); Lymphocytes # (A) 1.89 X 10*3/uL (0.90-5.00); Lymphocytes % (A) 30.4 %; MCH 31.7 pg (27.0-32.0); MCHC 34.4 g/dL (32.0-37.0); MCV 92.2 FL (80.0-97.0); Mean Platelet Volume 12.1 FL (9.5-12.2); NRBC Per 100 WBC 0 X 10*3/uL (0.00-0.01); Neutrophils # (A) 3.65 X 10*3/uL (1.80-7.70); Neutrophils % (A) 58.7 %; Platelet Count 124 X 10*3/uL (140-440); RBC 5.26 X 10*6/uL (4.40-5.60); RBC Morphology Normal (Normal); RDW 13.4 % (11.5-14.5); WBC 6.22 X 10*3/uL (4.50-10.00)
== END | disposition home or self-care (01) ==
LOC: RADUSWWP 07:53
PROVIDERS: ATTEND Internal Medicine Gastroenterology
DX: K74.60 Unspecified cirrhosis of liver (principal); B18.2 Chronic viral hepatitis C; R16.0 Hepatomegaly, not elsewhere classified
CPT/HCPCS: 76705; 80053; 85025; 87522